=== PATIENT | male | born 1945 | race Caucasian/White ===

== ENCOUNTER 2018-12-23 14:59 | Emergency (ER) | payer MEDICARE, OTHER ==
[~2018-12-23] VITALS: Ht 170.2 cm; Wt 99.0 kg
[2018-12-23 16:09] LABS: BASOPHILS # (AUTO) 0.1 X10'3 (0-0.2); BASOPHILS % (AUTO) 0.8 % (0-1); EOSINOPHILS # (AUTO) 0.2 X10'3 (0-0.9); EOSINOPHILS % (AUTO) 1.1 % (0-6); HEMATOCRIT 41.7 % (42.0-52.0); HEMOGLOBIN 13.5 g/dl (14.0-17.9); LYMPHOCYTES # (AUTO) 2.6 X10'3 (1.1-4.8); LYMPHOCYTES % (AUTO) 18.4 % (21-51); MEAN CORPUSCULAR HEMOGLOBIN 30.3 PG (27.0-31.0); MEAN CORPUSCULAR HGB CONC 32.5 g/dL (33.0-36.5); MEAN CORPUSCULAR VOLUME 93.2 FL (78-98); MEAN PLATELET VOLUME 9.4 FL (7.4-10.4); MONOCYTES # (AUTO) 1.3 X10'3 (0-0.9); MONOCYTES % (AUTO) 8.8 % (2-12); NEUTROPHILS # (AUTO) 10.2 X10'3 (1.8-7.7); NEUTROPHILS % (AUTO) 70.9 % (42-75); PLATELET COUNT 291 X10'3 (140-440); RED BLOOD COUNT 4.47 X10'6 (4.70-6.10); RED CELL DISTRIBUTION WIDTH 13.5 % (11.5-14.5); WHITE BLOOD COUNT 14.4 X10'3 (4.5-11.0)
[2018-12-23 16:28] LABS: ALANINE AMINOTRANSFERASE 61 U/L (12-78); ALBUMIN 3.4 G/DL (3.4-5.0); ALBUMIN/GLOBULIN RATIO 0.8 (1.1-1.5); ALKALINE PHOSPHATASE 89 IU/L (46-116); ANION GAP 16 (8-16); ASPARTATE AMINO TRANSFERASE 51 U/L (10-37); BILIRUBIN,TOTAL 0.5 MG/DL (0.1-1.0); BLOOD UREA NITROGEN 19 MG/DL (7-18); BUN/CREATININE RATIO 16.5 (5.4-32.0); CALCIUM 8.9 MG/DL (8.5-10.1); CHLORIDE 102 MMOL/L (99-107); CREATININE 1.15 MG/DL (0.60-1.10); GLUCOSE 89 MG/DL (70-104); POTASSIUM 3.9 MMOL/L (3.5-5.1); SODIUM 139 MMOL/L (135-145); TOTAL CARBON DIOXIDE 21.4 MMOL/L (24-32); TOTAL PROTEIN 7.5 G/DL (6.4-8.2); eGFR 63 ML/MIN
[2018-12-23] MEDS ORDERED: HYDROcodone/acetaminophen 5mg/325mg tablet PO ONE (18:00)
[2018-12-23] MEDS ORDERED: ketorolac tromethamine 15mg/ml inj. IM ONE (18:35)
[2018-12-23 19:03] VITALS: BP 196/88
--- NOTE | 2018-12-23 20:35 | NUR ---
VASCULAR RESULTS RETURNED REMARKABLE, CALL PLACED TO NUMBER GIVEN TO REGISTRATION EARLIER. AUTOMATED MESSAGE RECIEVED, LEFT MESSAGE THAT IT IS IMPERATIVE THAT HE RETURNS A CALL. LEFT UNIT NUMBER AND A CALL BACK NAME. KO LARA INFORMED
[2018-12-26] MEDS ORDERED: LOSA100T57 PO (10:53)
[2018-12-26] MEDS ORDERED: ZOLP10TA PO (10:53)
[2018-12-26] MEDS ORDERED: CYCL-1 PO (10:53)
[2018-12-26] MEDS ORDERED: OMEP40CA37 PO (10:53)
[2018-12-26] MEDS ORDERED: TRAZ300T2 PO (10:53)
[2018-12-26] MEDS ORDERED: DILT180C PO (10:53)
[2018-12-26] MEDS ORDERED: OXYC-580 PO (10:53)
[2018-12-26] MEDS ORDERED: AMLO5TAB4 PO (10:53)
[2018-12-26] MEDS ORDERED: GABA-532 PO (10:53)
[2018-12-26] MEDS ORDERED: CHLO25TA10 PO (10:53)
[2018-12-26] MEDS ORDERED: ALLO100T PO (10:53)
[2018-12-26] MEDS ORDERED: SPIR25TA5 PO (10:53)
[2018-12-26] MEDS ORDERED: DABI150C PO (10:53)
[2018-12-26] MEDS ORDERED: VENL150C58 PO (10:53)
[2018-12-26] MEDS ORDERED: ATOR40TA3 PO (10:53)
[2018-12-26] MEDS ORDERED: METO100T7 PO (10:53)
[2018-12-26] MEDS ORDERED: DIGO125T78 PO (10:53)
[2018-12-26] MEDS ORDERED: MORP-64 PO (10:53)
== END 2018-12-23 20:14 | disposition left against medical advice (07) ==
LOC: ER 15:00
DX: I74.2 Embolism and thrombosis of arteries of the upper extremities (principal); I25.2 Old myocardial infarction; Z86.73 Personal history of transient ischemic attack (TIA), and cerebral infarction without residual deficits; F17.200 Nicotine dependence, unspecified, uncomplicated; F12.90 Cannabis use, unspecified, uncomplicated
CPT/HCPCS: 36415; 71045; 80053; 84145; 84484; 85025; 93005; 93930; 96372; 99284; J1885

== ENCOUNTER 2018-12-23 21:24 | Inpatient (IN) | payer MEDICARE, OTHER | END 2018-12-31 12:37 | disposition home or self-care (01) | LOC: PCU 3S 12-27 09:55 → ER 21:24 → CICU 2S 12-24 01:14 | PROC: 3E05317 Introduction of Other Thrombolytic into Peripheral Artery, Percutaneous Approach (ICD-10-PCS; principal; ~2018-12-23) | DX: I74.2 Embolism and thrombosis of arteries of the upper extremities (principal); N17.9 Acute kidney failure, unspecified; I25.2 Old myocardial infarction; Z86.73 Personal history of transient ischemic attack (TIA), and cerebral infarction without residual deficits; F12.90 Cannabis use, unspecified, uncomplicated ==

== ENCOUNTER 2019-10-01 09:48 | Emergency (ER) | payer OTHER ==
[~2019-10-01] VITALS: Ht 170.2 cm; Wt 94.0 kg
[~2019-10-01 09:48] MED LIST: ALLO100T PO; AMLO5TAB4 PO; ATOR40TA7 PO; CHLO25TA10 PO; CYCL-1 PO; DABI150C PO; DIGO125T78 PO; DILT180C90 PO; GABA-532 PO; LOSA100T57 PO; METO100T7 PO; MORP-92 PO; OMEP40CA13 PO; OXYC-580 PO; SPIR25TA5 PO; TRAZ300T2 PO; VENL150C58 PO; ZOLP10TA PO
[2019-10-01] MEDS ORDERED: normal saline 1000ml 1,000 ML IV ONE ×2 (10:15→11:25)
[2019-10-01 10:42] LABS: BASOPHILS # (AUTO) 0.1 X10'3 (0-0.2); BASOPHILS % (AUTO) 1.2 % (0-1); EOSINOPHILS # (AUTO) 0.2 X10'3 (0-0.9); EOSINOPHILS % (AUTO) 1.4 % (0-6); HEMATOCRIT 47.7 % (42.0-52.0); HEMOGLOBIN 16.4 g/dl (14.0-17.9); LYMPHOCYTES # (AUTO) 2.8 X10'3 (1.1-4.8); LYMPHOCYTES % (AUTO) 23.4 % (21-51); MEAN CORPUSCULAR HEMOGLOBIN 31.2 PG (27.0-31.0); MEAN CORPUSCULAR HGB CONC 34.3 g/dL (33.0-36.5); MEAN CORPUSCULAR VOLUME 90.8 FL (78-98); MEAN PLATELET VOLUME 9.9 FL (7.4-10.4); MONOCYTES # (AUTO) 1.2 X10'3 (0-0.9); NEUTROPHILS # (AUTO) 7.7 X10'3 (1.8-7.7); PLATELET COUNT 361 X10'3 (140-440); RED BLOOD COUNT 5.25 X10'6 (4.70-6.10); RED CELL DISTRIBUTION WIDTH 15.3 % (11.5-14.5); WHITE BLOOD COUNT 12.1 X10'3 (4.5-11.0)
[2019-10-01 10:58] LABS: PARTIAL THROMBOPLASTIN TIME 27 SECONDS (22-32)
--- NOTE | 2019-10-01 11:00 | NUR ---
ATTEMPTED TO OBTAIN URINE SAMPLE PER MD ORDER, PATIENT UNABLE TO VOID BUT STOOL SAMPLE COLLECTED, DR BEE MADE AWARE.
[2019-10-01 11:09] LABS: ALANINE AMINOTRANSFERASE 31 U/L (12-78); ALBUMIN 3.6 G/DL (3.4-5.0); ALBUMIN/GLOBULIN RATIO 0.8 (1.1-1.5); ALKALINE PHOSPHATASE 72 IU/L (46-116); ANION GAP 14 (8-16); ASPARTATE AMINO TRANSFERASE 29 U/L (10-37); BLOOD UREA NITROGEN 28 MG/DL (7-18); BUN/CREATININE RATIO 22.6 (5.4-32.0); CALCIUM 9.2 MG/DL (8.5-10.1); CHLORIDE 105 MMOL/L (99-107); CREATININE 1.24 MG/DL (0.60-1.10); GLUCOSE 123 MG/DL (70-104); POTASSIUM 3.7 MMOL/L (3.5-5.1); SODIUM 140 MMOL/L (135-145); TOTAL CARBON DIOXIDE 21.4 MMOL/L (24-32); TOTAL PROTEIN 7.9 G/DL (6.4-8.2); eGFR 57 ML/MIN
[2019-10-01 11:12] LABS: MAGNESIUM 1.7 MG/DL (1.5-2.4); TROPONIN I 0.05 NG/ML (0.0-0.05)
[2019-10-01 12:46] LABS: C DIFF ANTIGEN SEE COMMENTS (NEGATIVE); C DIFF SPECIMEN=DIARRHEA? ACCEPTABLE; C DIFFICILE TOXINS A&B NEGATIVE (Neg)
[2019-10-01 14:08] LABS: CLARITY,URINE CLEAR (Clear); COLOR,URINE YELLOW (Yellow); GLUCOSE, URINE NEGATIVE (Neg); KETONES,URINE NEGATIVE (Neg); LEUKOCYTE ESTERASE ,URINE NEGATIVE (Neg); NITRITES, URINE NEGATIVE (Neg); OCCULT BLOOD,URINE MODERATE (Neg); PH,URINE 5.5 (4.8-8.0); PROTEIN,URINE 100 mg/dl (Neg); UA COLLECTION TYPE VOIDED; UROBILINOGEN,URINE 0.2 E.U/dL (0.2-1.0)
[2019-10-01 14:18] LABS: HYALINE CASTS 0-3 /LPF (NEGATIVE); MUCUS STRANDS MANY /LPF (Neg); SQUAMOUS EPITHELIAL CELL,UR FEW /LPF (FEW); TRANSITIONAL EPI CELLS,URINE FEW /HPF
[2019-10-01 14:19] LABS: BACTERIA,URINE NONE SEEN /HPF (Neg); WBC,URINE 0-4 /HPF (0-4)
[2019-10-01 15:24] LABS: C DIFF TOXIN (LAMP) NEGATIVE (NEG)
[2019-10-01] MEDS ORDERED: loperamide 2mg capsule PO ONE (15:30)
[2019-10-01] MEDS ORDERED: LOPE2CAP PO (15:32)
[2019-10-01 15:50] VITALS: BP 164/74
== END 2019-10-01 15:56 | disposition home or self-care (01) ==
LOC: ER 09:49
DX: E86.0 Dehydration (principal); R19.7 Diarrhea, unspecified; G43.909 Migraine, unspecified, not intractable, without status migrainosus; I48.91 Unspecified atrial fibrillation; I25.10 Atherosclerotic heart disease of native coronary artery without angina pectoris; I10 Essential (primary) hypertension; I25.2 Old myocardial infarction; K21.9 Gastro-esophageal reflux disease without esophagitis; F17.200 Nicotine dependence, unspecified, uncomplicated; F12.90 Cannabis use, unspecified, uncomplicated; Z86.73 Personal history of transient ischemic attack (TIA), and cerebral infarction without residual deficits; Z95.0 Presence of cardiac pacemaker; Z79.899 Other long term (current) drug therapy
CPT/HCPCS: 36415; 71045; 80053; 81001; 83605; 83735; 83880; 84145; 84484; 85025; 85610; 85730; 87040; 87324; 87449; 87493; 93005; 96360; 99284; J7030

== ENCOUNTER 2020-05-02 22:16 | Emergency (ER) | payer OTHER, MEDICARE ==
[~2020-05-02] VITALS: Ht 170.2 cm; Wt 90.9 kg
[~2020-05-02 22:16] MED LIST changes: -DIGO125T78 PO; +LAN0.125T PO; +LOPE2CAP PO; +OXYC-481 PO; -OXYC-580 PO
[2020-05-02] MEDS ORDERED: morphine 5 MG/ML injection IM ONE (23:45)
[2020-05-02] MEDS ORDERED: morphine 10mg/ml inj. IM ONE (23:50)
[2020-05-03] MEDS ORDERED: OXYcodone (OXYCONTIN) Ext Release 15 MG TAB.SR.12H PO STA (01:13)
--- NOTE | 2020-05-03 01:27 | NUR ---
Ambulated pt 20 feet without assistance and then an additional 15 feet with a walker. He then became wobbly on his left left and we returned to the room without incident. MD notified of gait test result. Pt states he desire to return home via taxi and that he will be able to ambulate to his residence.
[2020-05-03 02:07] VITALS: BP 170/103
== END 2020-05-03 02:08 | disposition home or self-care (01) ==
LOC: ER 22:16
DX: M79.605 Pain in left leg (principal); G89.29 Other chronic pain; G43.909 Migraine, unspecified, not intractable, without status migrainosus; I48.91 Unspecified atrial fibrillation; I25.10 Atherosclerotic heart disease of native coronary artery without angina pectoris; I10 Essential (primary) hypertension; I25.2 Old myocardial infarction; K21.9 Gastro-esophageal reflux disease without esophagitis; F12.90 Cannabis use, unspecified, uncomplicated; Z86.73 Personal history of transient ischemic attack (TIA), and cerebral infarction without residual deficits; Z95.0 Presence of cardiac pacemaker; Z72.89 Other problems related to lifestyle; Z79.899 Other long term (current) drug therapy
CPT/HCPCS: 73552; 96372; 99284; J2270